=== PATIENT | male | born 1960 | race Caucasian/White ===

== ENCOUNTER → 2018-05-19 09:45 | Outpatient (CLI) | payer BC, SELFPAY ==
--- NOTE | 2018-05-19 09:56 | RAD_ITS ---
STUDY: X-RAY - PELVIS REASON FOR EXAM: Male, 57 years old. Inflammatory polyarthropathy. TECHNIQUE: Frontal pelvis. COMPARISON: None. FINDINGS: No acute intrapelvic process is evident. Postsurgical changes left lower pelvis, possibly in the position of hernia repair. Correlate surgical history. There is mild to moderate disc narrowing with disc marginal osteophytosis at L3-L4, mild disc degenerative features at L4-L5 and L5-S1. Normal right SI joint. There is symmetrically mild degenerative features of the left SI joint, slight joint margin sclerosis and anterior marginal osteophytosis. Left hip, small os acetabuli, no other significant degenerative features. Right hip, minimal superior acetabular joint margin osteophytic spurring with a tiny subcortical cyst. Cortical hump of the superior margin of the femoral head neck junction. These features may be associated with femoral acetabular impingement. RAD/Pelvis 1 or 2 Views IMPRESSION: Lumbar spondylosis. No significant degeneration of the left hip joint. Os acetabuli is present. Mild degenerative features of the right hip articulation, in a pattern suggesting the possibility of underlying femoral acetabular impingement. Electronically Signed: Pito Deluca MD at 10:34 EST Tel , Service support ,
[2018-05-19 12:29] LABS: ALB/GLOB Ratio 1.1 RATIO (0.9-2.4); AST(SGOT) 19 U/L (15-37); Alanine Aminotransfer ALT/SGPT 42 U/L (16-61); Albumin, Serum 4.1 g/dL (3.2-5.0); Alkaline Phosphatase 110 U/L (45-117); Anion Gap 9 (5-15); BUN 22 mg/dL (7-18); BUN/Creat Ratio 28.3 RATIO (10-20); CRP < 2.90 mg/L (0.0-3.0); Calcium,Total 9.2 mg/dL (8.5-10.1); Chloride 105 mmol/L (98-107); Creatinine, Serum 0.78 mg/dL (0.70-1.30); EST Glomerular Filtration Rate 110 mL/min (>60); Est Glom Filt Rate - Afr Amer 133 mL/min (>60); Globulin 3.9 g/dL (2.2-4.2); Glucose 88 mg/dL (74-106); Potassium 4.5 mmol/L (3.5-5.1); Rheumatoid Factor < 10.0 IU/mL (<15); Sodium Level 140 mmol/L (136-145)
[2018-05-19 13:59] LABS: Erythrocyte Sedimentation Rate 23 mm/hr (0-20)
[2018-05-19 14:00] LABS: Absolute Lymphocyte Count 1.05 X10^3/ul (0.83-4.51); Absolute Neutrophil Count 2.6 X10^3/uL (2.0-7.7); Hematocrit 49.8 % (40-54); Hemoglobin 15.8 g/dl (13.0-16.5); Lymphocyte # 1.05 X10^3/ul (4.0); Lymphocyte % 25.6 % (19-41); Mean Corp Hgb Conc 31.7 g/gl (32-36); Mean Corpuscular Hgb 26.7 pg (27.0-32.0); Mean Corpuscular Volume 84.3 fL (80-94); Mean Platelet Vol. 10.2 fl (6.2-12.0); Monocyte# 0.44 X10^3/uL; Monocyte% 10.7 % (0-10); Neutrophil % 63.5 % (47-70); Platelet Count 196 K/mm3 (150-450); RBC Distribution Width CV 18.4 % (11.6-14.6); RBC Distribution Width SD 56.9 fl (35.1-43.9); Red Blood Count 5.91 M/mm3 (4.6-6.2); White Blood Count 4.1 K/mm3 (4.4-11.0)
[2018-05-19 14:12] LABS: POSITIVE COUNT NO; POSITIVE DIFFERENTIAL NO; POSITIVE MORPHOLOGY NO
[2018-05-20 15:16] LABS: ANTINUCLEAR ANTIBODIES DIRECT Negative (Negative)
[2018-05-27 08:40] LABS: CCP IgG Antibodies 8 units (0-19); HEPATITIS B SURFACE AG Negative (Negative); HLA B27 Negative (.); Hep B Surface Antibodies Non Reactive (.); Hep C Antibodies 0.2 s/co ratio (0.0-0.9)
== END ==
PROVIDERS: Family Provider Family Medicine; PCP Family Medicine; Referring Provider Internal Medicine Rheumatology; Visit Provider Internal Medicine Rheumatology
DX: M06.4 Inflammatory polyarthropathy (principal); M17.0 Bilateral primary osteoarthritis of knee; Z86.718 Personal history of other venous thrombosis and embolism; Z87.11 Personal history of peptic ulcer disease; G43.909 Migraine, unspecified, not intractable, without status migrainosus; G47.33 Obstructive sleep apnea (adult) (pediatric); E29.1 Testicular hypofunction
CPT/HCPCS: 36415; 72170; 80053; 81374; 85025; 85652; 86038; 86140; 86200; 86431; 86706; 86803; 87340

== ENCOUNTER → 2023-03-29 | Outpatient (CLI) | payer OTHER, SELFPAY ==
[2023-03-29 16:25] LABS: ALB/GLOB Ratio 1.2 RATIO (0.9-2.4); AST(SGOT) 28 U/L (15-37); Alanine Aminotransfer ALT/SGPT 51 U/L (16-61); Albumin, Serum 4.1 g/dL (3.2-5.0); Alkaline Phosphatase 84 U/L (45-117); Anion Gap 3 (5-15); BUN 19 mg/dL (7-18); BUN/Creat Ratio 18.6 RATIO (10-20); Calcium,Total 9.2 mg/dL (8.5-10.1); Chloride 109 mmol/L (98-107); Creatinine, Serum 1.02 mg/dL (0.70-1.30); EST Glomerular Filtration Rate 79 mL/min (>60); Est Glom Filt Rate - Afr Amer 96 mL/min (>60); Globulin 3.3 g/dL (2.2-4.2); Glucose 89 mg/dL (74-106); Potassium 4.2 mmol/L (3.5-5.1); Protein, Total 7.4 g/dL (6.4-8.2); Sodium Level 140 mmol/L (136-145)
== END | disposition home or self-care (01) ==
LOC: MTLAB 13:43
PROVIDERS: PCP Family Medicine; Referring Provider Internal Medicine Rheumatology; Visit Provider Internal Medicine Rheumatology
DX: M06.4 Inflammatory polyarthropathy (principal); Z79.899 Other long term (current) drug therapy; M17.0 Bilateral primary osteoarthritis of knee
CPT/HCPCS: 36415; 80053